=== PATIENT | male | born 1990 | race Caucasian/White ===

== ENCOUNTER → 2017-01-08 | Outpatient (CLI) | payer OTHER | LOC: MC.RAD 12:46 | DX: N62 Hypertrophy of breast (principal) ==

== ENCOUNTER 2017-04-18 21:15 | Emergency (ER) | payer OTHER ==
[~2017-04-18] VITALS: Ht 177.8 cm; Wt 77.3 kg
[2017-04-18 22:03] LABS: BASO # 0.1 (0.0-0.2); BASO % 0.7 % (0.0-2.0); EOS # 0.4 (0.0-0.7); EOS % 5.4 % (0-4.0); GRAN # 4.2 (1.4-6.5); GRAN % 58.1 % (42.2-75.2); HEMATOCRIT 43.6 % (42.0-52.0); HEMOGLOBIN 15.9 g/dl (13.5-18.0); LYMPH % 27.7 % (20.0-51.0); MEAN CELL VOLUME 87 fl (80.0-100.0); MEAN CORPUSCULAR HEMOGLOBIN 32 pg (27.0-31.0); MEAN CORPUSCULAR HGB CONC 37 g/dl (33.0-37.0); MEAN PLATELET VOLUME 10.3 fl (7.4-10.4); MONO # 0.6 (0.1-0.6); PLATELET COUNT 182 K/mm3 (130-400); WHITE BLOOD COUNT 7.2 K/mm3 (4.8-10.8)
[2017-04-18 22:11] LABS: ADJUSTED CALCIUM 9.1 mg/dL (8.4-10.2); ALANINE AMINOTRANSFERASE 44 U/L (21-72); ALBUMIN 4.9 gm/dL (3.5-5.0); ALKALINE PHOSPHATASE 53 U/L (50-136); ANION GAP 12 mmol/L (7-16); BILIRUBIN,TOTAL 0.5 mg/dL (0.0-1.0); BLOOD UREA NITROGEN 16 mg/dL (9-20); CALCIUM 9.8 mg/dL (8.4-10.2); CARBON DIOXIDE 26 mmol/L (22-30); CHLORIDE 103 mmol/L (98-107); CREATININE, serum 0.94 mg/dL (0.66-1.25); GLUCOSE 100 mg/dL (74-106); SODIUM 141 mmol/L (137-145); TOTAL PROTEIN 7.5 gm/dL (6.4-8.2)
[2017-04-18 22:26] LABS: TROPONIN-I < 0.012 ng/mL (0.000-0.034)
[2017-04-18 22:33] LABS: COLLECTION METHOD CLEAN CATCH
[2017-04-18 22:38] LABS: MUCOUS Present /lpf; PH 5 (5-8); SQUAMOUS EPITHELIAL None Seen /hpf; URINE APPEARANCE Clear; URINE BACTERIA None Seen /hpf; URINE BILIRUBIN Negative (NEGATIVE); URINE BLOOD Negative (NEGATIVE); URINE COLOR Yellow; URINE GLUCOSE Negative (NEGATIVE); URINE KETONE Negative (NEGATIVE); URINE LEUKOCYTE ESTERASE Negative (NEGATIVE); URINE PROTEIN(semi-quant) Negative (NEGATIVE); URINE RBC 0-2 /hpf; URINE UROBILINOGEN Negative (NEGATIVE); URINE WBC 0-2 /hpf
[2017-04-18 23:04] VITALS: BP 106/66; PULSE 52
== END 2017-04-18 23:05 | disposition home or self-care (01) ==
LOC: COL.ER 21:15
PROVIDERS: Emergency Medicine
DX: R42 Dizziness and giddiness (principal); R00.2 Palpitations
CPT/HCPCS: J7030

== ENCOUNTER → 2019-05-29 | Outpatient (CLI) | payer OTHER | LOC: MC.RAD 05-27 13:00 | DX: N62 Hypertrophy of breast (principal) ==

== ENCOUNTER 2023-12-16 10:04 | Emergency (ER) | payer OTHER ==
[~2023-12-16] VITALS: Ht 157.5 cm; Wt 79.5 kg
[2023-12-16 10:12] VITALS: TEMP 98.2
[2023-12-16] MEDS ORDERED: Ondansetron 4 MG/2 ML VIAL IV ONE (10:30)
[2023-12-16] MEDS ORDERED: Morphine 4 MG/ML VIAL IV ONE (10:30)
[2023-12-16] MEDS ORDERED: NS 1,000 ML IV ONE (10:30)
[2023-12-16] MEDS ORDERED: Iohexol 300 - 100 ML VIAL IV ONE (11:18)
[2023-12-16] MEDS ORDERED: NS 100 ML IV SCH (11:19)
[2023-12-16] MEDS ORDERED: PERCOCET 325 MG1 TA2 PO (12:03)
[2023-12-16 12:18] VITALS: BP 152/110; PULSE 82
== END 2023-12-16 12:20 | disposition home or self-care (01) ==
LOC: COL.ER 10:04
DX: S20.212A Contusion of left front wall of thorax, initial encounter (principal); F17.210 Nicotine dependence, cigarettes, uncomplicated; W11.XXXA Fall on and from ladder, initial encounter
CPT/HCPCS: J2270; J2405; J7030; Q9967